=== PATIENT | female | born 1985 | race Caucasian/White ===

== ENCOUNTER 2017-05-14 16:20 | Emergency (ER) | payer OTHER ==
[~2017-05-14] VITALS: Ht 170.2 cm; Wt 68.0 kg
[~2017-05-14 16:20] MED LIST: AUGMENTIN 500-1 EACH PO; CELEXA40 MG; CIPROFLOXACIN500 M3 GT; CLEOCIN HCL150 MG PO; FLAGYL500 MG PO; HYDROCODON-ACE1 EAC5 PO; HYDROCODONE-IB1 EACH PO; IBUPROFEN 800800 M1; KEFLEX500 MG PO; MEDROLDOSEPACK PO; MIRENA; NOHOMEMEDICATIONS; NORCO 5-325 TA1 EACH PO; PREDNISONE 10 M10 M1 PO; TRIAMCINOLONE A15 G1 TP
[2017-05-14] MEDS ORDERED: CIPROFLOXIN HC2.5 M1 OPHTHALMIC (16:50)
[2017-05-14] MEDS ORDERED: KEFLEX500 M1 PO (16:57)
[2017-05-14 17:14] VITALS: BP 126/74
== END 2017-05-14 17:19 | disposition home or self-care (01) ==
LOC: M.ERS 16:20
DX: H00.022 Hordeolum internum right lower eyelid (principal); F17.210 Nicotine dependence, cigarettes, uncomplicated; Z90.49 Acquired absence of other specified parts of digestive tract